=== PATIENT | female | born 1940 | race Caucasian/White ===

== ENCOUNTER 2016-07-07 23:18 | Emergency (ER) | payer OTHER, BC ==
--- NOTE | 2016-07-07 23:24 | PDOC ---
History of Present Illness - General Stated Complaint: VARICOSE VEIN BURST Time Seen by Provider: 07/07/16 23:22 History Source: Patient Exam Limitations: No Limitations - History of Present Illness Initial Comments: 07/07/16 23:35 This is a 76-year-old female who comes in complaining of bleeding from her left lower extremity. Patient said that all of a sudden it started squirting blood and made a mess in her home. Patient applied pressure at to the area and by the time she got here it had stopped bleeding. Patient has a history of varicosities in the past. Patient said this has never happened before. Patient denies any other complaints or symptoms. PAST MEDICAL HISTORY: no significant history PAST SURGICAL HISTORY: no significant history FAMILY HISTORY: no pertinant history SOCIAL HISTORY: Pt lives with family and is employed. MEDICATIONS: reviewed ALLERGIES: As per nursing notes Review of Systems General: No fevers or chills, no weakness, no weight loss HEENT: No change in vision. No sore throat,. No ear pain CardioVascular: No chest pain or shortness of breath Respiratory:No cough, or wheezing. Gastrointestinal: no nausea, vomitting, diarrhea or constipation, No rectal bleeding Genitourinary: No dysuria, hematuria, or frequency Musculoskeletal: No joint or muscle pain or swelling Neurologic: No headache, vertigo, dizziness or loss of consciousness Psychiatric: nor depression Skin: No rashes or easy bruising Endocrine: no increased thirst or abnormal weight change Allergic: no skin or latex allergy All other systems reviewed and normal GENERAL: The patient is awake, alert, and fully oriented, in no acute distress. HEAD: Normal with no signs of trauma. EYES: Pupils equal, round and reactive to light, extraocular movements intact, sclera anicteric, conjunctiva clear. EXTREMITIES: Normal range of motion, no edema. Medial aspect of left ankle there is a varicosity with a small opening to the skin. There is no active bleeding at this time. There is no increased warmth, erythema tenderness or discomfort. Neurovascular distal is intact NEUROLOGICAL: Normal speech, normal gait. PSYCH: Normal mood, normal affect. SKIN: Warm, Dry, normal turgor, no rashes or lesions noted. Assessment and plan: This is a 76 her old female who comes in complaining of a varicosity that "and was bleeding. By the time patient got here it had stopped.. Patient had a Band-Aid over it which was left in place and a Julio wrap was applied over the Band-Aid to give some additional compression and protection. Patient discharged home will follow-up with her primary care doctor as needed Past History - Past Medical History Allergies/Adverse Reactions: Allergies Allergy/AdvReac Type Severity Reaction Status Date / Time No Known Allergies Allergy Verified 07/07/16 23:23 Home Medications: Ambulatory Orders Metoprolol Succinate [Toprol XL -] 50 mg PO DAILY 06/05/12 Simvastatin [Zocor -] 20 mg PO HS 06/05/12 Triamterene/Hydrochlorothiazid [Triamterene-Hctz 37.5-25 mg Cp] 1 each PO DAILY 06/05/12 Calcium Carb & Citrate/Vit D3 [Calcium + Vitamin D3 Caplet] 1 tab PO DAILY 02/15 Cholecalciferol (Vitamin D3) [Vitamin D3] 5,000 unit PO DAILY 02/15/14 Multivitamins [Multivit ([facility] Formulary)] 1 tab PO DAILY 02/15/14 Diltiazem Cd [Cardizem Cd -] 120 mg PO DAILY 09/05/14 Anemia: No Asthma: No Cancer: No Cardiac Disorders: No CVA: No COPD: No CHF: No Dementia: No Diabetes: No GI Disorders: No Disorders: No HTN: Yes (DX 1998) Hypercholesterolemia: Yes (DX 1998) Liver Disease: No Suicide Attempt (Hx): No Seizures: No Thyroid Disease: No - Surgical History Abdominal Surgery: No Appendectomy: No Cardiac Surgery: No Cholecystectomy: No Lung Surgery: No Neurologic Surgery: No Orthopedic Surgery: Yes (LEFT ANKLE FX REPAIR-1993) - Psycho/Social/Smoking Cessation Hx Anxiety: No Suicidal Ideation: No Smoking Status: No Smoking History: Never smoked Have you smoked in the past 12 months: No Number of Cigarettes Smoked Daily: 0 Hx Alcohol Use: No Drug/Substance Use Hx: No Substance Use Type: None Hx Substance Use Treatment: No *DC/Admit/Observation/Transfer Diagnosis at time of Disposition: Varicose veins of left lower extremity - Discharge Dispostion Disposition: HOME Condition at time of disposition: Stable Admit: No - Patient Instructions Additional Instructions: Leave the Julio wrap in place overnight. Tomorrow U can remove the Julio wrap and leave a Band-Aid on it for the next 48 hours this will protect it if it gets bumped and keep it from getting torn open again. Return to the emergency department immediately with ANY new, persistent or worsening symptoms. Continue any medications as previously prescribed by your physician. You should follow up with your primary doctor as soon as possible regarding today's emergency department visit. . Please make sure your doctor reviews the results of your emergency evaluation. Thank you for coming to the Emergency Department today for your care. It was a pleasure to see you today. Please note that your evaluation is INCOMPLETE until you follow-up with your doctor.
[2016-07-07 23:26] VITALS: BP 157/63; PULSE 60; TEMP 97.9; BMI 24.4
== END 2016-07-07 23:41 | disposition home or self-care (01) ==
LOC: FER 23:18
DX: I83.892 Varicose veins of left lower extremity with other complications (principal); I10 Essential (primary) hypertension; E78.00 Pure hypercholesterolemia, unspecified; Z79.84 Long term (current) use of oral hypoglycemic drugs
CPT/HCPCS: 99281-25

== ENCOUNTER 2019-01-24 20:29 | Observation (INO) | payer OTHER, BC ==
[2019-01-24 20:36] VITALS: BMI 25.4
[2019-01-24 21:09] LABS: BASO % 1.5 % (0-2.0); EOS % 1.6 % (0-4.5); HEMATOCRIT 42.2 % (32.4-45.2); HEMOGLOBIN 14.7 GM/dl (10.7-15.3); LYMPH % 3.9 % (8-40); MCH 31.7 pg (25.7-33.7); MCHC 34.8 g/dl (32.0-36.0); MEAN PLT VOLUME 9.3 fl (7.5-11.1); MONO % 7.7 % (3.8-10.2); NEUT % 85.3 % (42.8-82.8); PLATELET COUNT 243 K/MM3 (134-434); RBC 4.64 M/mm3 (3.60-5.2); RDW 11.9 % (11.6-15.6)
[2019-01-24 21:20] LABS: ALBUMIN 4.3 g/dl (3.4-5.0); BILIRUBIN,TOTAL 1.5 mg/dl (0.2-1); CREATININE 0.9 mg/dl (0.55-1.3); POTASSIUM 3.2 mmol/L (3.5-5.1)
--- NOTE | 2019-01-24 21:28 | PDOC ---
Documentation entered by Mayuri Wren SCRIBE, acting as scribe for Juan Carrillo MD. Juan Carrillo MD: This documentation has been prepared by the Holger caballero Sammi, SCRIBE, under my direction and personally reviewed by me in its entirety. I confirm that the documentation accurately reflects all work, treatment, procedures, and medical decision making performed by me. History of Present Illness - General Chief Complaint: Lightheaded Stated Complaint: NAUSEA,DIZZY - History of Present Illness Initial Comments: 01/24/19 20:40 The patient is a 78 year old female who presents to the emergency department for evaluation of 1 day of vomiting, dizziness, chills, and general malaise. She notes this symptoms are similar to when she had food poisoning. The patient states she was at a street fair yesterday where she ate chicken, sausage, and pasta. She was evaluated at an urgent care prior to arrival at the ED where a flu test was negative. Past History - Past Medical History Allergies/Adverse Reactions: Allergies Allergy/AdvReac Type Severity Reaction Status Date / Time No Known Allergies Allergy Verified 01/24/19 20:30 Home Medications: Ambulatory Orders Metoprolol Succinate [Toprol XL -] 50 mg PO DAILY 06/05/12 Simvastatin [Zocor -] 20 mg PO HS 06/05/12 Triamterene/Hydrochlorothiazid [Triamterene-Hctz 37.5-25 mg Cp] 1 each PO DAILY 06/05/12 Calcium Carb & Citrate/Vit D3 [Calcium + Vitamin D3 Caplet] 1 tab PO DAILY 02/15 Cholecalciferol (Vitamin D3) [Vitamin D3] 5,000 unit PO DAILY 02/15/14 Multivitamins [Multivit ([facility] Formulary)] 1 tab PO DAILY 02/15/14 Diltiazem Cd [Cardizem Cd -] 120 mg PO DAILY 09/05/14 Nitrofurantoin Macrocrystal [Nitrofurantoin] 100 mg PO DAILY 01/24/19 Anemia: No Asthma: No Cancer: No Cardiac Disorders: No CVA: No COPD: No CHF: No Dementia: No Diabetes: No GI Disorders: No Disorders: No HTN: Yes (DX 1998) Hypercholesterolemia: Yes (DX 1998) Liver Disease: No Seizures: No Thyroid Disease: No - Surgical History Abdominal Surgery: No Appendectomy: No Cardiac Surgery: No Cholecystectomy: No Lung Surgery: No Neurologic Surgery: No Orthopedic Surgery: Yes (LEFT ANKLE FX REPAIR-1993) - Psycho Social/Smoking Cessation Hx Smoking Status: No Smoking History: Never smoked Have you smoked in the past 12 months: No Number of Cigarettes Smoked Daily: 0 Hx Alcohol Use: No Drug/Substance Use Hx: No Substance Use Type: None Hx Substance Use Treatment: No Review of Systems - Review of Systems Comments:: 01/24/19 20:40 GENERAL/CONSTITUTIONAL: +chills +weakness HEAD, EYES, EARS, NOSE AND THROAT: No change in vision. No ear pain or discharge. No sore throat. CARDIOVASCULAR: No chest pain or shortness of breath. RESPIRATORY: No cough, wheezing, or hemoptysis. GASTROINTESTINAL: +vomiting. No diarrhea or constipation. GENITOURINARY: No dysuria, frequency, or change in urination. MUSCULOSKELETAL: No joint or muscle swelling or pain. No neck or back pain. SKIN: No rash NEUROLOGIC: +dizziness. No headache,loss of consciousness, or change in strength /sensation. *Physical Exam - Vital Signs Last Vital Signs Temp Pulse Resp BP Pulse Ox 98.8 F 85 15 169/61 97 01/24/19 20:32 01/24/19 20:32 01/24/19 20:32 01/24/19 20:32 01/24/19 20:32 - Physical Exam Comments: 01/24/19 20:40 GENERAL: Awake, alert, and fully oriented, in no acute distress HEAD: No signs of trauma EYES: PERRLA, EOMI, sclera anicteric, conjunctiva clear ENT: Auricles normal inspection, hearing grossly normal, nares patent, oropharynx clear without exudates. Moist mucosa NECK: Normal ROM, supple, no lymphadenopathy, JVD, or masses LUNGS: Breath sounds equal, clear to auscultation bilaterally. No wheezes, and no crackles HEART: Regular rate and rhythm, normal S1 and S2, no murmurs, rubs or gallops ABDOMEN: Soft, nontender, normoactive bowel sounds. No guarding, no rebound. No masses EXTREMITIES: Normal range of motion, no edema. No clubbing or cyanosis. No cords, erythema, or tenderness NEUROLOGICAL: Cranial nerves II through XII grossly intact. Normal speech, normal gait SKIN: Warm, Dry, normal turgor, no rashes or lesions noted. ED Treatment Course - LABORATORY CBC & Chemistry Diagram: 01/24/19 20:50 01/24/19 20:50 - ADDITIONAL ORDERS Additional order review: Laboratory Results 01/24/19 01/24/19 20:50 20:50 Sodium 135 L Potassium 3.2 L Chloride 93 L Carbon Dioxide 29 Anion Gap 13 BUN 17.0 Creatinine 0.9 Est GFR (CKD-EPI)AfAm 70.98 Est GFR (CKD-EPI)NonAf 61.24 Random Glucose 131 H Calcium 9.0 Total Bilirubin 1.5 H AST 20 ALT 20 Alkaline Phosphatase 76 Troponin I < 0.03 Total Protein 7.0 Albumin 4.3 01/24/19 20:50 RBC 4.64 MCV 91.0 MCHC 34.8 RDW 11.9 MPV 9.3 Neutrophils % 85.3 H Lymphocytes % 3.9 L Monocytes % 7.7 Eosinophils % 1.6 Basophils % 1.5 Medical Decision Making - Medical Decision Making neuro: EOMI, no nystagmus, no strength in 4 ext, no dysdiadocokinesia 01/25/19 05:15 EKG #1-- sinus with ST depression v4-v6; twi inferiorly EKG#2--unchanged from #1 a/p Non specific Gi symptoms with dizziness resolved after IV fluids and reglan no cp, but the presence of these EKG findings with upper abd symptoms requires serial troponins Discharge - Discharge Information Problems reviewed: No Clinical Impression/Diagnosis: Abnormal electrocardiogram [ECG] [EKG] Condition: Stable - Admission Yes - Follow up/Referral - Patient Discharge Instructions - Post Discharge Activity
[2019-01-24] MEDS ORDERED: METOCLOPRAMIDE HCL INJECTION 10 MG/2 ML VIAL IVPUSH ONE (22:46)
[2019-01-24] MEDS ORDERED: SODIUM CHLORIDE 0.9% 500 ML INFUS.BAG IV ONE (22:46)
[2019-01-24] MEDS ORDERED: METOCLOPRAMIDE HCL INJECTION 10 MG/2 ML VIAL ONE (22:47)
[2019-01-25] MEDS ORDERED: POTASSIUM CHLORIDE TABS 20 MEQ TABLET.ER (FP) PO ONE ×2 (01:47→09:15)
[2019-01-25] MEDS ORDERED: SODIUM CHLORIDE 1,000 ML IV SCH (02:00)
[2019-01-25] MEDS ORDERED: ACETAMINOPHEN 1000 MG/100 ML VIAL (NON FORMULARY) IVPB ONE (02:36)
[2019-01-25 07:28] LABS: HEMATOCRIT 38.3 % (32.4-45.2); HEMOGLOBIN 12.9 GM/dl (10.7-15.3); MCH 30.6 pg (25.7-33.7); MCHC 33.8 g/dl (32.0-36.0); MEAN CELL VOLUME 90.4 fl (80-96); MEAN PLT VOLUME 8.8 fl (7.5-11.1); PLATELET COUNT 211 K/MM3 (134-434); RBC 4.23 M/mm3 (3.60-5.2); RDW 11.9 % (11.6-15.6); WHITE BLOOD COUNT 16.4 K/mm3 (4.0-10.8)
[2019-01-25 07:36] LABS: INR 1.32 (0.82-1.09); PROTHROMBIN TIME (PATIENT) 14.7 SEC (10.2-13.0)
[2019-01-25 07:45] LABS: CALCIUM 7.8 mg/dl (8.5-10); CHOLESTEROL 120 mg/dl (50-200); CREATININE 0.8 mg/dl (0.55-1.3); HDL CHOLESTEROL 49 mg/dl (40-60); LDL CHOLESTEROL (ONLY DFH) 62 mg/dl (5-100); MAGNESIUM 1.7 mg/dL (1.8-2.4); PHOSPHOROUS 3.1 mg/dl (2.5-4.9); POTASSIUM 3.6 mmol/L (3.5-5.1); TRIGLYCERIDES 43 mg/dl (0-150)
[2019-01-25] MEDS ORDERED: MAGNESIUM SULF 50% (8.12 MEQ/2 ML-1 GM VIAL) IVPB ONE (08:03)
--- NOTE | 2019-01-25 08:03 | HP ---
CHIEF COMPLAINT: Sweats, chills PCP: Dr. Harrison Cardiology: Dr. Toro PORT CDL A DRIVER: Dr. Cassandra Sebastian HISTORY OF PRESENT ILLNESS: 78 year-old female with a PMH significant for HTN, HLD, and vertigo, who presented to the ED for evaluation of sweats, chills, general malaise and two episodes of vomiting x 1 day. One week ago patient had dysuria and was prescribed a course of macrobid by her PORT CDL A DRIVER. Patient finished the course. Symptoms of dysuria resolved but patient continued to feel "not right." Two days ago patient went to a [employer] and ate food from vendors. She felt fine afterward, no GI symptoms. Yesterday patient developed sweats and chills, general malaise, dizziness, and two episodes of vomiting. No diarrhea. Denies chest pain, palpitations, SOB, MAL[place], orthopnea, lower extremity edema. ER course was notable for: (1) T 100.1, WBC 14.0k (2) ECG: ST depressions V4-V6 (not seen previously) (3) Trop neg x 1 Recent Travel: No PAST MEDICAL HISTORY: Hypertension Hyperlipidemia Vertigo PAST SURGICAL HISTORY: Left ankle fracture repair 1993 Social History: Smoking: never Alcohol: no Drugs: no Allergies No Known Allergies Allergy (Verified 01/24/19 20:30) HOME MEDICATIONS: Home Medications Medication Instructions Recorded Metoprolol Succinate [Toprol XL -] 50 mg PO DAILY 06/05/12 Simvastatin [Zocor -] 20 mg PO HS 06/05/12 Triamterene/Hydrochlorothiazid 1 each PO DAILY 06/05/12 [Triamterene-Hctz 37.5-25 mg Cp] Calcium Carb & Citrate/Vit D3 1 tab PO DAILY 02/15/14 [Calcium + Vitamin D3 Caplet] Cholecalciferol (Vitamin D3) 5,000 unit PO DAILY 02/15/14 [Vitamin D3] Multivitamins [Multivit ([facility] 1 tab PO DAILY 02/15/14 Formulary)] Diltiazem Cd [Cardizem Cd -] 120 mg PO DAILY 09/05/14 Nitrofurantoin Macrocrystal 100 mg PO DAILY 01/24/19 [Nitrofurantoin] REVIEW OF SYSTEMS CONSTITUTIONAL: +sweats, chills, malaise, dizziness, loss of appetite Absent: diaphoresis, weight change HEENT: Absent: rhinorrhea, nasal congestion, throat pain, throat swelling, difficulty swallowing, mouth swelling, ear pain, eye pain, visual changes CARDIOVASCULAR: Absent: chest pain, syncope, palpitations, irregular heart rate, lightheadedness , peripheral edema RESPIRATORY: Absent: cough, shortness of breath, dyspnea with exertion, orthopnea, wheezing, stridor, hemoptysis GASTROINTESTINAL: Absent: abdominal pain, abdominal distension, nausea, vomiting, diarrhea, constipation, melena, hematochezia GENITOURINARY: Absent: dysuria, frequency, urgency, hesitancy, hematuria, flank pain, genital pain MUSCULOSKELETAL: Absent: myalgia, arthralgia, joint swelling, back pain, neck pain SKIN: Absent: rash, itching, pallor HEMATOLOGIC/IMMUNOLOGIC: Absent: easy bleeding, easy bruising, lymphadenopathy, frequent infections ENDOCRINE: Absent: unexplained weight gain, unexplained weight loss, heat intolerance, cold intolerance NEUROLOGIC: Absent: headache, focal weakness or paresthesias, dizziness, unsteady gait, seizure, mental status changes, bladder or bowel incontinence PSYCHIATRIC: Absent: anxiety, depression, suicidal or homicidal ideation, hallucinations. PHYSICAL EXAMINATION Vital Signs - 24 hr 01/24/19 01/25/19 01/25/19 20:32 01:10 01:15 Temperature 98.8 F 100.1 F H Pulse Rate 85 89 Pulse Rate [ 94 H Left] Respiratory 15 18 15 Rate Blood Pressure 169/61 124/53 L Blood Pressure 156/62 [Left] O2 Sat by Pulse 97 95 96 Oximetry (%) 01/25/19 01/25/19 01/25/19 01:41 01:49 05:41 Temperature 100.1 F H 98.6 F Pulse Rate 89 74 Pulse Rate [ Left] Respiratory 18 18 Rate Blood Pressure 124/53 L 116/43 L Blood Pressure [Left] O2 Sat by Pulse 95 Oximetry (%) 01/25/19 06:22 Temperature Pulse Rate Pulse Rate [ Left] Respiratory Rate Blood Pressure Blood Pressure [Left] O2 Sat by Pulse 96 Oximetry (%) GENERAL: Awake, alert, and fully oriented, in no acute distress. HEAD: Normal with no signs of trauma. EYES: Pupils equal, round and reactive to light, extraocular movements intact, sclera anicteric, conjunctiva clear. No lid lag. LUNGS: Breath sounds equal, clear to auscultation bilaterally. No wheezes, and no crackles. No accessory muscle use. HEART: Regular rate and rhythm, S1 and S2 ABDOMEN: Soft, nontender, not distended, normoactive bowel sounds MUSCULOSKELETAL: Normal range of motion at all joints. No bony deformities or tenderness. No CVA tenderness. UPPER EXTREMITIES: 2+ pulses, warm, well-perfused. No cyanosis. No clubbing. No peripheral edema. LOWER EXTREMITIES: 2+ pulses, warm, well-perfused. No calf tenderness. No peripheral edema. NEUROLOGICAL: Cranial nerves II-XII intact. Normal speech. Laboratory Results - last 24 hr 01/24/19 01/24/19 01/24/19 20:50 20:50 20:50 WBC 14.0 H RBC 4.64 Hgb 14.7 Hct 42.2 MCV 91.0 MCH 31.7 MCHC 34.8 RDW 11.9 Plt Count 243 MPV 9.3 Absolute Neuts (auto) 12.0 Neutrophils % 85.3 H Lymphocytes % 3.9 L Monocytes % 7.7 Eosinophils % 1.6 Basophils % 1.5 PT with INR INR Sodium 135 L Potassium 3.2 L Chloride 93 L Carbon Dioxide 29 Anion Gap 13 BUN 17.0 Creatinine 0.9 Est GFR (CKD-EPI)AfAm 70.98 Est GFR (CKD-EPI)NonAf 61.24 Random Glucose 131 H Calcium 9.0 Phosphorus Magnesium Total Bilirubin 1.5 H AST 20 ALT 20 Alkaline Phosphatase 76 Troponin I Total Protein 7.0 Albumin 4.3 Triglycerides Cholesterol Total LDL Cholesterol HDL Cholesterol Lipase 63 L 01/24/19 01/25/19 01/25/19 20:50 03:00 07:10 WBC 16.4 H RBC 4.23 Hgb 12.9 Hct 38.3 MCV 90.4 MCH 30.6 MCHC 33.8 RDW 11.9 Plt Count 211 MPV 8.8 Absolute Neuts (auto) 13.1 Neutrophils % No Result Required. Lymphocytes % No Result Required. Monocytes % Eosinophils % Basophils % PT with INR INR Sodium Potassium Chloride Carbon Dioxide Anion Gap BUN Creatinine Est GFR (CKD-EPI)AfAm Est GFR (CKD-EPI)NonAf Random Glucose Calcium Phosphorus Magnesium Total Bilirubin AST ALT Alkaline Phosphatase Troponin I < 0.03 < 0.02 Total Protein Albumin Triglycerides Cholesterol Total LDL Cholesterol HDL Cholesterol Lipase 01/25/19 01/25/19 01/25/19 07:10 07:10 07:10 WBC RBC Hgb Hct MCV MCH MCHC RDW Plt Count MPV Absolute Neuts (auto) Neutrophils % Lymphocytes % Monocytes % Eosinophils % Basophils % PT with INR 14.7 H INR 1.32 H Sodium 136 Potassium 3.6 Chloride 101 Carbon Dioxide 26 Anion Gap 9 BUN 14.0 Creatinine 0.8 Est GFR (CKD-EPI)AfAm 81.84 Est GFR (CKD-EPI)NonAf 70.61 Random Glucose 121 H Calcium 7.8 L Phosphorus 3.1 Magnesium 1.7 L Total Bilirubin AST ALT Alkaline Phosphatase Troponin I Total Protein Albumin Triglycerides 43 Cholesterol 120 Total LDL Cholesterol 62 HDL Cholesterol 49 Lipase ASSESSMENT/PLAN 78 year-old female with a PMH significant for HTN, HLD, and vertigo. Admitted for UTI and abnormal electrocardiagram. Abnormal electrocardiagram --ST depressions V4, V5, V6, not seen on previous ECG from July --troponins negative x 3 --telemetry monitoring: no events --echo pending --seen and evaluated by cardiology Hypertension --BP stable --continue ToprolXL, Cardizem CD, triamterene/HCTZ UTI --low grade fever, WBC trending up --UA: 1+ leuks, WBCs 80-100 --just finished one week course of macrobid --start ceftriaxone (day #1) Hyperlipidemia --continue Lipitor Hypokalemia Hypomagnesemia --replete K>4, Mg>2 FEN Fluids: PO intake adequate Electrolytes: replete as indicated Nutrition: regular diet DVT prophylaxis: subq lovenox Physical therapy Dispo: continues to require inpatient care. Full code. Visit type - Emergency Visit Emergency Visit: Yes ED Registration Date: 01/25/19 Care time: The patient presented to the Emergency Department on the above date and was hospitalized for further evaluation of their emergent condition. - New Patient This patient is new to me today: Yes Date on this admission: 01/25/19 - Critical Care Critical Care patient: No
[2019-01-25 08:06] LABS: PLATELET ESTIMATE ADEQUATE
[2019-01-25] MEDS ORDERED: MAGNESIUM SULFATE IN WATER 2 GM/50 ML IVPB IVPB ONE (08:15)
[2019-01-25] MEDS ORDERED: PT OWN MED DRAWER 7, Y5N ONE (09:31)
[2019-01-25] MEDS: TRIAMTERENE AND HCTZ - 37.5 MG/25 MG CAPSULE PO SCH (09:46)
[2019-01-25 11:15] LABS: EPITHELIAL CELLS FEW /hpf
--- NOTE | 2019-01-25 12:52 | EKG ---
Test Reason : Blood Pressure : / mmHG Vent. Rate : 069 BPM Atrial Rate : 069 BPM P-R Int : 144 ms QRS Dur : 084 ms QT Int : 394 ms P-R-T Axes : 049 035 024 degrees QTc Int : 422 ms NORMAL SINUS RHYTHM NORMAL ECG WHEN COMPARED WITH ECG OF 24-JAN-2019 23:27, T WAVE INVERSION NO LONGER EVIDENT IN INFERIOR LEADS Confirmed by Israel Bynum MD ([id number]) on 01/25/2019 12:52:28 PM Referred By: ROBBIN HAN Confirmed By:Israel Bynum MD
--- NOTE | 2019-01-25 12:53 | EKG ---
Test Reason : Blood Pressure : / mmHG Vent. Rate : 089 BPM Atrial Rate : 089 BPM P-R Int : 144 ms QRS Dur : 082 ms QT Int : 366 ms P-R-T Axes : 053 032 -11 degrees QTc Int : 445 ms NORMAL SINUS RHYTHM ABNORMAL ECG WHEN COMPARED WITH ECG OF 24-JAN-2019 21:04, NO SIGNIFICANT CHANGE WAS FOUND Confirmed by Israel Bynum MD ([id number]) on 01/25/2019 12:52:39 PM Referred By: SHANELLE AMBROSIO Confirmed By:Israel Bynum MD
--- NOTE | 2019-01-25 12:53 | EKG ---
Test Reason : Blood Pressure : / mmHG Vent. Rate : 088 BPM Atrial Rate : 088 BPM P-R Int : 144 ms QRS Dur : 082 ms QT Int : 360 ms P-R-T Axes : 054 042 -08 degrees QTc Int : 435 ms NORMAL SINUS RHYTHM ABNORMAL ECG NO PREVIOUS ECGS AVAILABLE Confirmed by Israel Bynum MD ([id number]) on 01/25/2019 12:52:41 PM Referred By: Confirmed By:Israel Bynum MD
--- NOTE | 2019-01-25 13:55 | CON.CARD ---
Consult Consult Specialty:: Cardiology Referred by:: Hospitalist Reason for Consultation:: Cardiac evaluation - History of Present Illness Chief Complaint: Weakness History of Present Illness: Patient is a 78 year old female with underlying history of HTN and hypercholesterolemia who presented to [facility] with 1 day of dizziness, general weakness and vomiting, She thought it was due to something she had eaten [place] the street [place] yesterday. Currently, she feels better. She denies chest pain, shortness of breath or palpitations. She denies paroxysmal nocturnal dyspnea or orthopnea. She denies fever or chills. She denies headache or lightheadedness at this time. - History Source History Provided By: Patient, Medical Record Limitations to Obtaining History: No Limitations - Past Medical History Cardio/Vascular: Yes: HTN, Hyperlipdemia - Past Surgical History Additional Surgical History: Ankle fracture repair - Alcohol/Substance Use Hx Alcohol Use: No - Smoking History Smoking history: Never smoked Have you smoked in the past 12 months: No Aproximately how many cigarettes per day: 0 Home Medications - Allergies Allergies/Adverse Reactions: Allergies Allergy/AdvReac Type Severity Reaction Status Date / Time No Known Allergies Allergy Verified 01/24/19 20:30 - Home Medications Home Medications: Ambulatory Orders Metoprolol Succinate [Toprol XL -] 50 mg PO DAILY 06/05/12 Simvastatin [Zocor -] 20 mg PO HS 06/05/12 Triamterene/Hydrochlorothiazid [Triamterene-Hctz 37.5-25 mg Cp] 1 each PO DAILY 06/05/12 Calcium Carb & Citrate/Vit D3 [Calcium + Vitamin D3 Caplet] 1 tab PO DAILY 02/15 Cholecalciferol (Vitamin D3) [Vitamin D3] 5,000 unit PO DAILY 02/15/14 Multivitamins [Multivit ([facility] Formulary)] 1 tab PO DAILY 02/15/14 Diltiazem Cd [Cardizem Cd -] 120 mg PO DAILY 09/05/14 Nitrofurantoin Macrocrystal [Nitrofurantoin] 100 mg PO DAILY 01/24/19 Family Medical History Family History: Denies Review of Systems - Review of Systems Constitutional: reports: Malaise, Weakness. denies: Chills, Fever Cardiovascular: denies: Chest Pain, Palpitations, Shortness of Breath Respiratory: denies: Cough, Hemoptysis, Orthopnea, PND, SOB, SOB on Exertion Gastrointestinal: reports: Nausea, Vomiting. denies: Abdominal Pain, Constipation, Diarrhea, Melena, Rectal Bleeding Genitourinary: denies: Dysuria, Hematuria Musculoskeletal: denies: Back Pain, Joint Pain Neurological: reports: Dizziness. denies: Headache, Seizure, Syncope Vital Signs: Vital Signs Temperature 98.6 F 01/25/19 09:00 Pulse Rate 84 01/25/19 09:00 Respiratory Rate 18 01/25/19 09:00 Blood Pressure 138/40 L 01/25/19 09:00 O2 Sat by Pulse Oximetry (%) 96 01/25/19 08:23 Eyes: Yes: PERRL HENT: Yes: Atraumatic Respiratory: Yes: CTA Bilaterally Gastrointestinal: Yes: Normal Bowel Sounds, Soft. No: Tenderness Cardiovascular: Yes: Regular Rate and Rhythm JVD: No PMI: Non-Displaced Heart Sounds: Yes: S1, S2. No: Gallop Murmur: Yes: Systolic Murmur, Grade 1 Edema: No - Other Data Labs, Other Data: CBC, BMP 01/25/19 07:10 01/25/19 07:10 INR, PTT INR 1.32 (0.82-1.09) H 01/25/19 07:10 Troponin, BNP 01/24/19 01/25/19 01/25/19 20:50 03:00 09:05 Troponin I < 0.03 < 0.02 0.[address] depression in lateral leads Echo: Pending Imaging - Results Chest X-ray: Report Reviewed (Mild congestive changes) EKG: Report Reviewed Problem List - Problems (1) Generalized weakness Code(s): R53.1 - WEAKNESS (2) Hypercholesterolemia Code(s): E78.00 - PURE HYPERCHOLESTEROLEMIA, UNSPECIFIED (3) Abnormal electrocardiogram [ECG] [EKG] Code(s): R94.31 - ABNORMAL ELECTROCARDIOGRAM [ECG] [EKG] (4) Dizziness Code(s): R42 - DIZZINESS AND GIDDINESS (5) Hypertension Code(s): I10 - ESSENTIAL (PRIMARY) HYPERTENSION Qualifiers: Hypertension type: essential hypertension Assessment/Plan 1. Generalized weakness and malaise 2. HTN 3. Hypercholesterolemia 4. Abnormal ECG suggests CAD PLAN: 1. Echocardiography to assess LV/RV and valvular function 2. Continue Metoprolol 50 mg QD and Cardizem CD 120 mg QD with caution 3. Continue Dyazide 25/37.5 mg QD as tolerated 4. Continue Atorvastatin 10 mg QHS 5. Further cardiac work up can be done as outpatient Dipesh Israel MD
[2019-01-25] MEDS: CEFTRIAXONE 1 G/50 ML PREMIX 50 ML IVPB SCH (14:09)
--- NOTE | 2019-01-25 15:12 | ECHO ---
Version: 1 Name: DANIELLE DANIEL Exam: Adult Echocardiogram Study Date: 01/25/2019, 1:50 PM Age: 78 Years MMode/2D Measurements & Calculations IVSd: 0.77 cm LVIDs: 2.12 cm LVIDd: 3.6 cm LVPWd: 0.76 cm LVOT diam: 2.00 cm Ao root diam: 2.6 cm LA dimension: 2.45 cm Doppler Measurements & Calculations MV E max jed: 121.6 cm/sec MV A max jed: 129.3 cm/sec MV E/A: 0.94 MR max P.4 mmHg Ao max P.7 mmHg Ao V2 max: 178.0 cm/sec PI end-d jed: 155.7 cm/sec TR max jed: 326.4 cm/sec TR max P.7 mmHg Left Ventricle The left ventricular size, thickness and function are normal. Ejection Fraction = 70%. The transmitr al spectral Doppler flow pattern is suggestive of impaired LV relaxation. Right Ventricle The right ventricle is normal in size and function. Atria Normal left and right atrial size and function. Mitral Valve There is mild mitral annular calcification. There is mild to moderate mitral regurgitation. Tricuspid Valve The tricuspid valve is normal in structure and function. There is mild to moderate tricuspid regurgi tation. Aortic Valve There is mild aortic sclerosis.;. Mild aortic regurgitation. Pulmonic Valve The pulmonic valve is not well visualized. Mild pulmonic valvular regurgitation. Great Vessels The aortic root is normal size. Normal aortic arch, descending and ascending aorta. Pericardium/Pleura There is no pericardial effusion. Summary Statements The left ventricular size, thickness and function are normal Ejection Fraction = 70%. The transmitral spectral Doppler flow pattern is suggestive of impaired LV relaxation. The right ventricle is normal in size and function. Normal left and right atrial size and function. There is mild mitral annular calcification. There is mild to moderate mitral regurgitation. The tricuspid valve is normal in structure and function. There is mild to moderate tricuspid regurgitation. There is mild aortic sclerosis.; Mild aortic regurgitation. The pulmonic valve is not well visualized. Mild pulmonic valvular regurgitation. The aortic root is normal size. Normal aortic arch, descending and ascending aorta There is no pericardial effusion. Scooby Crump 01/25/2019, 2:12 PM Ordering Physician: Ashley Rondon Performed By: Bhavani Mora
[2019-01-25] MEDS: ENOXAPARIN NA (PORCINE) 40 MG/0.4 ML DISP.SYRIN SQ SCH (16:36)
[2019-01-25] MEDS ORDERED: ATORVASTATIN CA 10 MG TABLET (FP) PO SCH (22:00)
[2019-01-25] MEDS ORDERED: PATIENT'S OWN MEDICATION (NON-FORMULARY) (Simvastatin 20 MG) PO SCH (22:00)
--- NOTE | 2019-01-26 07:55 | PN ---
Physical Exam: SUBJECTIVE: Patient seen and examined OBJECTIVE: Vital Signs Period Temp Pulse Resp BP Sys/Hu Pulse Ox Last 24 Hr 98.3 F-99.0 F 66-84 16-18 118-138/40-54 96-98 GENERAL: The patient is awake, alert, and fully oriented, in no acute distress. HEAD: Normal with no signs of trauma. EYES: PERRL, extraocular movements intact, sclera anicteric, conjunctiva clear. No ptosis. ENT: Ears normal, nares patent, oropharynx clear without exudates, moist mucous membranes. NECK: Trachea midline, full range of motion, supple. LUNGS: Breath sounds equal, clear to auscultation bilaterally, no wheezes, no crackles, no accessory muscle use. HEART: Regular rate and rhythm, S1, S2 without murmur, rub or gallop. ABDOMEN: Soft, nontender, nondistended, normoactive bowel sounds, no guarding, no rebound, no hepatosplenomegaly, no masses. EXTREMITIES: 2+ pulses, warm, well-perfused, no edema. NEUROLOGICAL: Cranial nerves II through XII grossly intact. Normal speech, gait not observed. PSYCH: Normal mood, normal affect. SKIN: Warm, dry, normal turgor, no rashes or lesions noted Laboratory Results - last 24 hr 01/25/19 01/25/19 01/25/19 07:10 07:10 09:05 Neutrophils % (Manual) 72.0 Band Neutrophils % 4.0 Lymphocytes % (Manual) 11.0 Monocytes % (Manual) 8 Eosinophils % (Manual) 5.0 H Platelet Estimate Adequate Hemoglobin A1c % 5.4 Troponin I 0.03 Urine Color Urine Appearance Urine pH Urine Protein Urine Glucose (UA) Urine Ketones Urine Blood Urine Nitrite Urine Bilirubin Urine Urobilinogen Ur Leukocyte Esterase Urine RBC Urine WBC Ur Transition Epith Cell 01/25/19 11:05 Neutrophils % (Manual) Band Neutrophils % Lymphocytes % (Manual) Monocytes % (Manual) Eosinophils % (Manual) Platelet Estimate Hemoglobin A1c % Troponin I Urine Color Ekaterina Urine Appearance Clear Urine pH 5.5 Urine Protein Negative Urine Glucose (UA) Negative Urine Ketones Trace Urine Blood Trace-lysed Urine Nitrite Negative Urine Bilirubin Negative Urine Urobilinogen 0.2 Ur Leukocyte Esterase 1+ Urine RBC 10-20 Urine WBC 80-100 Ur Transition Epith Cell Few Active Medications Generic Name Dose Route Start Last Admin Trade Name Freq PRN Reason Stop Dose Admin Atorvastatin Calcium 10 mg 01/25/19 22:00 01/25/19 21:24 Lipitor - PO 10 mg HS RADHA Administration Diltiazem HCl 120 mg 01/25/19 10:00 01/25/19 09:47 Cardizem Cd - PO 120 mg DAILY RADHA Administration Enoxaparin Sodium 40 mg 01/25/19 15:30 01/25/19 16:36 Lovenox - SQ 40 mg DAILY RADHA Administration Ceftriaxone Sodium 50 mls @ 100 mls/hr 01/25/19 14:00 01/25/19 14:09 Ceftriaxone 1 Gm-D5w Bag IVPB 100 mls/hr DAILY RADHA Administration Protocol Metoprolol Succinate 50 mg 01/25/19 10:00 01/25/19 09:47 Toprol Xl - PO 50 mg DAILY RADHA Administration Triamterene/HCTZ 1 cap 01/25/19 10:00 01/25/19 09:46 Dyazide 25/37.5mg PO 1 cap DAILY RADHA Administration ASSESSMENT/PLAN:
[2019-01-26] MEDS ORDERED: PT OWN MED DRAWER 7, Y5N ONE (08:41)
[2019-01-26] MEDS: ENOXAPARIN NA (PORCINE) 40 MG/0.4 ML DISP.SYRIN SQ SCH (09:17)
[2019-01-26] MEDS: CEFTRIAXONE 1 G/50 ML PREMIX 50 ML IVPB SCH (09:17)
[2019-01-26] MEDS: TRIAMTERENE AND HCTZ - 37.5 MG/25 MG CAPSULE PO SCH (09:17)
[2019-01-26 09:18] LABS: BASO % 0.2 % (0-2.0); EOS % 6.3 % (0-4.5); HEMOGLOBIN 14.5 GM/dl (10.7-15.3); LYMPH % 24.6 % (8-40); MCH 30.7 pg (25.7-33.7); MCHC 33.7 g/dl (32.0-36.0); MEAN CELL VOLUME 91.1 fl (80-96); MEAN PLT VOLUME 8.9 fl (7.5-11.1); NEUT % 60.9 % (42.8-82.8); PLATELET COUNT 270 K/MM3 (134-434); RBC 4.72 M/mm3 (3.60-5.2); RDW 11.7 % (11.6-15.6); WHITE BLOOD COUNT 10.3 K/mm3 (4.0-10.8)
[2019-01-26 09:23] LABS: ALBUMIN 3.7 g/dl (3.4-5.0); BILIRUBIN,TOTAL 1.1 mg/dl (0.2-1); CALCIUM 8.5 mg/dl (8.5-10); CREATININE 0.8 mg/dl (0.55-1.3); MAGNESIUM 2.1 mg/dL (1.8-2.4); POTASSIUM 3.3 mmol/L (3.5-5.1); TOT PROT 6.7 g/dl (6.4-8.2)
--- NOTE | 2019-01-26 12:21 | DS ---
Physical Exam: SUBJECTIVE: Patient seen and examined OBJECTIVE: Vital Signs Period Temp Pulse Resp BP Sys/Hu Pulse Ox Last 24 Hr 98.3 F-99.0 F 66-79 14-18 118-130/48-60 96-98 PHYSICAL EXAM GENERAL: The patient is awake, alert, and fully oriented, in no acute distress. HEAD: Normal with no signs of trauma. EYES: PERRL, extraocular movements intact, sclera anicteric, conjunctiva clear. ENT: Ears normal, nares patent, oropharynx clear without exudates, moist mucous membranes. NECK: Trachea midline, full range of motion, supple. LUNGS: Breath sounds equal, clear to auscultation bilaterally, no wheezes, no crackles, no accessory muscle use. HEART: Regular rate and rhythm, S1, S2 without murmur, rub or gallop. ABDOMEN: Soft, nontender, nondistended, normoactive bowel sounds, no guarding, no rebound, no hepatosplenomegaly, no masses. EXTREMITIES: 2+ pulses, warm, well-perfused, no edema. NEUROLOGICAL: Cranial nerves II through XII grossly intact. Normal speech, gait not observed. PSYCH: Normal mood, normal affect. SKIN: Warm, dry, normal turgor, no rashes or lesions noted. LABS Laboratory Results - last 24 hr 01/26/19 01/26/19 08:55 08:55 WBC 10.3 RBC 4.72 Hgb 14.5 Hct 43.0 MCV 91.1 MCH 30.7 MCHC 33.7 RDW 11.7 Plt Count 270 MPV 8.9 Absolute Neuts (auto) 6.3 Neutrophils % 60.9 Lymphocytes % 24.6 Monocytes % 8.0 Eosinophils % 6.3 H Basophils % 0.2 Sodium 134 L Potassium 3.3 L Chloride 101 Carbon Dioxide 27 Anion Gap 6 L BUN 16.0 Creatinine 0.8 Est GFR (CKD-EPI)AfAm 81.84 Est GFR (CKD-EPI)NonAf 70.61 Random Glucose 133 H Calcium 8.5 Magnesium 2.1 Total Bilirubin 1.1 H AST 31 ALT 22 Alkaline Phosphatase 72 Total Protein 6.7 Albumin 3.7 HOSPITAL COURSE: Date of Admission:01/25/19 Date of Discharge: 01/26/19 Pre hospital course 78 year-old female with a PMH significant for HTN, HLD, and vertigo, who presented to the ED for evaluation of sweats, chills, general malaise and two episodes of vomiting x 1 day. One week ago patient had dysuria and was prescribed a course of macrobid by her COMPUTER GAME TESTER. Patient finished the course. Symptoms of dysuria resolved but patient continued to feel "not right." Two days ago patient went to a [employer] fair and ate food from vendors. She felt fine afterward, no GI symptoms. Yesterday patient developed sweats and chills, general malaise, dizziness, and two episodes of vomiting. No diarrhea. Denies chest pain, palpitations, SOB, [place], orthopnea, lower extremity edema. ER course (1) T 100.1, WBC 14.0k (2) ECG: ST depressions V4-V6 (not seen previously) (3) Trop neg x 1 Subsequent hospital course 78 year-old female with a PMH significant for HTN, HLD, and vertigo. Admitted for UTI and abnormal electrocardiagram. Abnormal electrocardiagram --ST depressions V4, V5, V6, not seen on previous ECG from July --troponins negative x 3 --telemetry monitoring: no events --echo: LV normal, EF 70%, impaired relaxation; RV normal; mild to moderate MR; mild to moderate TR; mild AI; mild PI --seen and evaluated by cardiology: further cardiac workup as outpatient Hypertension --BP stable --continued ToprolXL, Cardizem CD, triamterene/HCTZ UTI --low grade fever and leukocytosis on admission which resolved --culture was negative but just finished one week course of macrobid --treated with ceftriaxone while inpatient, discharged on cefuroxime for an additional 7 days of treatment Hyperlipidemia --continued Lipitor Hypokalemia Hypomagnesemia --repleted K>4, Mg>2 Minutes to complete discharge: 35 Discharge Summary Problems reviewed: No Reason For Visit: ABNORMAL EKG Current Active Problems Abnormal electrocardiogram [ECG] [EKG] (Acute) Generalized weakness (Acute) Hypercholesterolemia (Acute) Condition: Improved - Instructions Diet, Activity, Other Instructions: A prescription has been sent to your pharmacy for cefuroxime which is an antibiotic to treat your urinary tract infection. Take this medication as directed and be sure to finish all the medication. You should follow up with Dr. Cassandra Sebastian after you finish the antibiotics to have your urine checked to make sure you cleared the infection. It is recommended you follow up with your electric serviceman, Dr. Jj Toro, regarding the ECG and echo findings during your hospital stay. You have an appointment on Thursday, 02/02 at 8:45am. Referrals: Cassandra Sebastian MD [Staff Physician] - 1 Week Jj Toro MD [Staff Physician] - 02/02/19 8:45 am (Bring your insurance card and ID) Ken Harrison MD [Primary Care Provider] - Disposition: HOME - Home Medications Comprehensive Discharge Medication List: Ambulatory Orders Metoprolol Succinate [Toprol XL -] 50 mg PO DAILY 06/05/12 Simvastatin [Zocor -] 20 mg PO HS 06/05/12 Triamterene/Hydrochlorothiazid [Triamterene-Hctz 37.5-25 mg Cp] 1 each PO DAILY 06/05/12 Calcium Carb & Citrate/Vit D3 [Calcium + Vitamin D3 Caplet] 1 tab PO DAILY 02/15 Cholecalciferol (Vitamin D3) [Vitamin D3] 5,000 unit PO DAILY 02/15/14 Multivitamins [Multivit ([facility] Formul[facility])] 1 tab PO DAILY 02/15/14 Diltiazem Cd [Cardizem Cd -] 120 mg PO DAILY 09/05/14 Cefuroxime Axetil [Cefuroxime] 250 mg PO BID #14 tablet 01/26/19 This patient is new to me today: No Emergency Visit: Yes ED Registration Date: 01/25/19 Care time: The patient presented to the Emergency Department on the above date and was hospitalized for further evaluation of their emergent condition. Critical Care patient: No - Discharge Referral Referred to [facility] Med P.C.: No
[2019-01-26] MEDS ORDERED: POTASSIUM CHLORIDE TABS 20 MEQ TABLET.ER (FP) PO ONE (14:15)
[2019-01-26 14:24] VITALS: BP 173/68; PULSE 77; TEMP 98
== END 2019-01-26 10:34 | disposition home or self-care (01) ==
LOC: FER 20:29 → UNDOADMOB 01-25 01:10 → FM/S 01-25 01:10
PROVIDERS: ADMIT Internal Medicine; ATTEND Nurse Practitioner Acute Care
PROC: 3E033NZ Introduction of Analgesics, Hypnotics, Sedatives into Peripheral Vein, Percutaneous Approach (ICD-10-PCS; principal; 2019-01-25)
PROC: 3E0337Z Introduction of Electrolytic and Water Balance Substance into Peripheral Vein, Percutaneous Approach (ICD-10-PCS; 2019-01-25)
PROC: 3E033GC Introduction of Other Therapeutic Substance into Peripheral Vein, Percutaneous Approach (ICD-10-PCS; 2019-01-25)
PROC: 3E013GC Introduction of Other Therapeutic Substance into Subcutaneous Tissue, Percutaneous Approach (ICD-10-PCS; 2019-01-25)
DX: R94.31 Abnormal electrocardiogram [ECG] [EKG] (principal); I10 Essential (primary) hypertension; E78.5 Hyperlipidemia, unspecified; E87.6 Hypokalemia; E83.42 Hypomagnesemia; N39.0 Urinary tract infection, site not specified; R53.1 Weakness; R42 Dizziness and giddiness; Z29.8 Encounter for other specified prophylactic measures
CPT/HCPCS: 36415; 71045-TC-FY; 80048; 80053; 80061; 81003; 81015; 83036; 83690; 83735; 84100; 84484; 85025; 85610; 87040; 87045; 87046; 87086; 93005; 93306-TC; 96365; 96372; 96375; 97116-GP; 97161-GP; 99285-25; G0378; J0131; J7030

== ENCOUNTER 2019-11-14 07:53 | Day surgery (SDC) | payer OTHER, BC ==
[2019-11-10 11:25] VITALS: BMI 23.4
[2019-11-14] MEDS ORDERED: PROPOFOL 20 ML ONE ×4 (08:26)
[2019-11-14 11:08] VITALS: TEMP 97.9
[2019-11-14 11:11] VITALS: BP 162/62; PULSE 69
--- NOTE | 2019-11-16 16:26 | PATH ---
Surgical Pathology Report Patient Name: DANIELLE DANIEL [facility]. Rec. #: [id number] /Age/Gender: 1940 (Age: 79) / F Account: [id number] Location: [facility] Taken: 11/14/2019 Received: 11/14/2019 Reported: 11/16/2019 Physicians: Vijay Flores M.D. Specimen(s) Received A: BIOPSY SECOND PORTION DUODENUM B: BIOPSY GASTRIC ANTRUM Clinical History History of polyps, GERD Postoperative diagnosis: Gastritis, diverticulosis Final Diagnosis A. DUODENUM, SECOND PORTION, BIOPSY: DUODENAL MUCOSA WITHOUT SIGNIFICANT PATHOLOGIC FINDINGS. B. GASTRIC ANTRUM, BIOPSY: GASTRIC ANTRAL MUCOSA WITH SEVERE CHRONIC ACTIVE GASTRITIS. IMMUNOHISTOCHEMICAL STAIN FOR H. PYLORI IS POSITIVE (NUMEROUS). Positive and negative controls (internal if applicable) show appropriate results. Electronically Signed Arti Valdes M.D. Gross Description A. Received in formalin, labeled "biopsy second portion of duodenum" is a obando, irregular portion of soft tissue measuring 0.5 cm. in greatest dimension. The specimen is submitted in toto in one cassette. B. Received in formalin, labeled "biopsy gastric antrum" are 2 obando, irregular portions of soft tissue measuring 0.3 and 0.5 cm. in greatest dimension. The specimens are submitted in toto in one cassette. [facility]
== END 2019-11-14 11:10 | disposition home or self-care (01) ==
LOC: FASU-ENDO 07:53
PROVIDERS: ATTEND Internal Medicine Gastroenterology
PROC: 0DB98ZX Excision of Duodenum, Via Natural or Artificial Opening Endoscopic, Diagnostic (ICD-10-PCS; 2019-11-14)
PROC: 0DB68ZX Excision of Stomach, Via Natural or Artificial Opening Endoscopic, Diagnostic (ICD-10-PCS; 2019-11-14)
PROC: 0DJD8ZZ Inspection of Lower Intestinal Tract, Via Natural or Artificial Opening Endoscopic (ICD-10-PCS; principal; 2019-11-14 09:43)
DX: Z86.010 Personal history of colon polyps (principal); K57.30 Diverticulosis of large intestine without perforation or abscess without bleeding; K29.50 Unspecified chronic gastritis without bleeding; B96.81 Helicobacter pylori [H. pylori] as the cause of diseases classified elsewhere
CPT/HCPCS: 43239; G0105; 88305-TC; 88342-TC

== ENCOUNTER 2020-04-08 11:42 | Emergency (ER) | payer OTHER, BC ==
[2020-04-08 12:01] VITALS: BP 178/94; PULSE 83; TEMP 98.8; BMI 23.2
[2020-04-08 12:50] LABS: BASO % 4.8 % (0-2.0); HEMATOCRIT 43.9 % (32.4-45.2); LYMPH % 17.4 % (8-40); MCH 30.9 pg (25.7-33.7); MCHC 34.2 g/dl (32.0-36.0); MEAN CELL VOLUME 90.4 fl (80-96); MEAN PLT VOLUME 8.4 fl (7.5-11.1); MONO % 17.9 % (3.8-10.2); NEUT % 59.9 % (42.8-82.8); PLATELET COUNT 225 K/MM3 (134-434); RBC 4.86 M/mm3 (3.60-5.2); RDW 11.5 % (11.6-15.6); WHITE BLOOD COUNT 4.5 K/mm3 (4.0-10.8)
[2020-04-08 12:56] LABS: ALBUMIN 3.8 g/dl (3.4-5.0); BILIRUBIN,TOTAL 0.8 mg/dl (0.2-1); CALCIUM 8.7 mg/dl (8.5-10); CREATININE 1.1 mg/dl (0.55-1.3); POTASSIUM 3.4 mmol/L (3.5-5.1); TOT PROT 7.1 g/dl (6.4-8.2)
[2020-04-08] MEDS ORDERED: POTASSIUM CHLORIDE TABS 20 MEQ TABLET.ER (FP) PO ONE ×2 (13:20→13:35)
== END 2020-04-08 13:57 | disposition home or self-care (01) ==
LOC: FER 11:42
DX: R19.7 Diarrhea, unspecified (principal); R53.1 Weakness; M79.10 Myalgia, unspecified site; R63.0 Anorexia; E87.6 Hypokalemia
CPT/HCPCS: 36415; 80053; 85025; 99284-25; C9803; U0003

== ENCOUNTER 2021-06-05 14:56 | Emergency (ER) | payer OTHER, BC ==
[2021-06-05 15:32] VITALS: TEMP 98.9; BMI 23.0
[2021-06-05 16:44] LABS: ALBUMIN 4.7 g/dl (3.4-5.0); BILIRUBIN,TOTAL 0.8 mg/dl (0.2-1); CALCIUM 10.4 mg/dl (8.5-10); CREATININE 0.9 mg/dl (0.55-1.3); TOT PROT 7.5 g/dl (6.4-8.2)
[2021-06-05 17:54] LABS: BASO % 0.5 % (0-2.0); EOS % 0.4 % (0-4.5); HEMATOCRIT 42.7 % (32.4-45.2); HEMOGLOBIN 14.4 GM/dL (10.7-15.3); MCH 30.1 pg (25.7-33.7); MCHC 33.7 g/dl (32.0-36.0); MEAN CELL VOLUME 89.2 fl (80-96); MEAN PLT VOLUME 8.5 fl (7.5-11.1); MONO % 9.8 % (3.8-10.2); NEUT % 57.3 % (42.8-82.8); PLATELET COUNT 347 10^3/uL (134-434); RBC 4.78 M/mm3 (3.60-5.2); RDW 12.6 % (11.6-15.6); WHITE BLOOD COUNT 8.5 K/mm3 (4.0-10.0)
[2021-06-05] MEDS ORDERED: SODIUM CHLORIDE 1,000 ML IV STA (18:13)
[2021-06-05 18:30] VITALS: BP 162/78; PULSE 70
== END 2021-06-05 20:29 | disposition home or self-care (01) ==
LOC: FER 14:56
PROC: 3E0337Z Introduction of Electrolytic and Water Balance Substance into Peripheral Vein, Percutaneous Approach (ICD-10-PCS; principal; 2021-06-05)
DX: R19.7 Diarrhea, unspecified (principal)
CPT/HCPCS: 36415; 74177-TC; 80053; 83690; 85025; 99285-25; Q9967

== ENCOUNTER 2021-12-24 09:52 | Emergency (ER) | payer OTHER, BC ==
[2021-12-24 10:07] VITALS: BP 171/76; PULSE 76; RESP 18; TEMP 97.8; BMI 21.0
[2021-12-24] MEDS ORDERED: ACETAMINOPHEN 325 MG TABLET (FP) PO ONE (10:45)
[2021-12-24] MEDS ORDERED: ACETAMINOPHEN 325 MG TABLET (FP) ONE (10:47)
== END 2021-12-24 12:05 | disposition home or self-care (01) ==
LOC: FER 09:52
DX: M54.2 Cervicalgia (principal)
CPT/HCPCS: 99283-25

== ENCOUNTER 2022-10-15 11:05 | Emergency (ER) | payer OTHER, BC ==
[2022-10-15 11:21] VITALS: BP 188/71; PULSE 90; RESP 18; TEMP 99; BMI 23.4
[2022-10-15 11:47] LABS: EPITHELIAL CELLS FEW /hpf
[2022-10-15 11:54] LABS: HEMATOCRIT 39.9 % (32.4-45.2); HEMOGLOBIN 13.3 G/dL (10.7-15.3); MCH 30.5 pg (25.7-33.7); MCHC 33.2 g/dl (32.0-36.0); MEAN CELL VOLUME 91.7 fl (80-96); MEAN PLT VOLUME 8.8 fl (7.5-11.1); PLATELET COUNT 266.4 10^3/uL (134-434); RBC 4.35 10^6/uL (3.60-5.2); RDW 13.4 % (11.6-15.6); WHITE BLOOD COUNT 10.7 10^3/uL (4.0-10.8)
[2022-10-15 11:56] LABS: INR 0.99 (0.83-1.09); PROTHROMBIN TIME (PATIENT) 11.5 SEC (9.7-13.0)
[2022-10-15 12:04] LABS: ACTIVATED PTT 30.1 SECONDS (25.2-36.5)
[2022-10-15 12:09] LABS: ALBUMIN 4.4 g/dl (3.4-5.0); BILIRUBIN,TOTAL 0.5 mg/dl (0.2-1); BLOOD UREA NITROGEN 27.6 mg/dl (7-18); CALCIUM 9.5 mg/dl (8.5-10.1); POTASSIUM 3.5 mmol/L (3.5-5.1); SGOT/AST 18.8 U/L (15-37); SGPT/ALT 16.3 U/L (7-52); TOT PROT 6.7 g/dl (6.4-8.2)
[2022-10-15 12:28] LABS: PLATELET ESTIMATE ADEQUATE
== END 2022-10-15 13:15 | disposition home or self-care (01) ==
LOC: FER 11:05
DX: N93.9 Abnormal uterine and vaginal bleeding, unspecified (principal); N30.91 Cystitis, unspecified with hematuria; R30.0 Dysuria
CPT/HCPCS: 36415; 80053; 81003; 81015; 82272; 85027; 85610; 85730; 86850; 86900; 86901; 87086; 87186; 99283-25

== ENCOUNTER 2023-06-26 13:21 | Emergency (ER) | payer OTHER, BC ==
[2023-06-26 13:31] VITALS: BP 184/72; PULSE 72; RESP 19; TEMP 97.8; BMI 26.2
[2023-06-26 15:36] LABS: HEMATOCRIT 41.6 % (32.4-45.2); HEMOGLOBIN 13.9 G/dL (10.7-15.3); MCH 30.3 pg (25.7-33.7); MCHC 33.3 g/dl (32.0-36.0); MEAN CELL VOLUME 91.1 fl (80-96); PLATELET COUNT 258.1 10^3/uL (134-434); RBC 4.57 10^6/uL (3.60-5.2); RDW 13.1 % (11.6-15.6); WHITE BLOOD COUNT 6.4 10^3/uL (4.0-10.8)
[2023-06-26 15:41] LABS: PLATELET ESTIMATE ADEQUATE
[2023-06-26 15:45] LABS: ALBUMIN 4.8 g/dl (3.4-5.0); CALCIUM 10.1 mg/dl (8.5-10.1); CREATININE 1.3 mg/dl (0.6-1.3); POTASSIUM 4.3 mmol/L (3.5-5.1); TOT PROT 7.1 g/dl (6.4-8.2)
[2023-06-26] MEDS: SODIUM CHLORIDE 500 ML IV STA (16:30)
[2023-06-26] MEDS ORDERED: SIMETHICONE 80 MG TAB.CHEW (FP) ONE (17:11)
[2023-06-26] MEDS: FAMOTIDINE 20 MG/50 ML IVPB 20 MG/50 ML MG IVPB ONE (17:15)
[2023-06-26] MEDS: SIMETHICONE 80 MG TAB.CHEW (FP) PO ONE (17:15)
[2023-06-26] MEDS ORDERED: FAMOTIDINE 20 MG/50 ML IVPB 20 MG/50 ML MG IVPB ONE (17:16)
== END 2023-06-26 18:34 | disposition home or self-care (01) ==
LOC: FER 13:21
PROC: 3E033GC Introduction of Other Therapeutic Substance into Peripheral Vein, Percutaneous Approach (ICD-10-PCS; principal; 2023-06-26)
PROC: 3E0337Z Introduction of Electrolytic and Water Balance Substance into Peripheral Vein, Percutaneous Approach (ICD-10-PCS; 2023-06-26)
DX: R53.83 Other fatigue (principal); R35.0 Frequency of micturition; R39.15 Urgency of urination; K58.9 Irritable bowel syndrome, unspecified; R10.30 Lower abdominal pain, unspecified; Z20.822 Contact with and (suspected) exposure to COVID-19
CPT/HCPCS: 0241U-QW; 36415; 71045-TC-FY; 74019-TC-FY; 80053; 81003; 84484; 85027; 87086; 93005; 99285-25